=== PATIENT | female | born 1955 | race Caucasian/White ===

== ENCOUNTER 2017-08-09 09:21 | Day surgery (SDC) | payer OTHER ==
[2017-08-03 16:57] VITALS: BMI 30.7
[2017-08-09] MEDS ORDERED: PROPOFOL 20 ML ONE (09:30)
[2017-08-09 12:38] VITALS: BP 108/60; PULSE 82; TEMP 97.4
--- NOTE | 2017-08-13 19:23 | PATH ---
Surgical Pathology Report Patient Name: TRIXIE MARISCAL [facility]. Rec. #: [id number] /Age/Gender: 1955 (Age: 62) / F Account: [id number] Location: [facility]-ENDOSCOPY Taken: 08/09/2017 Received: 08/09/2017 Reported: 08/13/2017 Physicians: Keily Renee M.D. Specimen(s) Received A: SMALL BOWEL B: STOMACH C: BX GE JUNCTION Clinical History Abdominal pain Postoperative diagnosis: Status post gastric bypass surgery Final Diagnosis A. SMALL BOWEL, BIOPSY: SMALL BOWEL (DUODENAL) MUCOSA WITH NO PATHOLOGIC FINDINGS. B. STOMACH, BIOPSY: MILD CHRONIC GASTRITIS. IMMUNOSTAIN IS NEGATIVE FOR H. PYLORI ORGANISMS. C. GE JUNCTION, BIOPSY: GASTRIC CARDIA-TYPE MUCOSA SHOWING MILD CHRONIC INFLAMMATION. NO ESOPHAGEAL (SQUAMOUS) MUCOSA IS IDENTIFIED. NEGATIVE FOR INTESTINAL METAPLASIA. Electronically Signed Olivia Oviedo M.D. Gross Description A. Received in formalin, labeled "biopsy small bowel" are 2 knight, irregular portions of soft tissue measuring 0.3 and 0.4 cm. in greatest dimension. The specimens are submitted in toto in one cassette. B. Received in formalin, labeled "biopsy stomach" is a knight, irregular portion of soft tissue measuring 0.5 cm. in greatest dimension. The specimen is submitted in toto in one cassette. C. Received in formalin, labeled "biopsy GE junction" is a knight, irregular portion of soft tissue measuring 0.4 cm. in greatest dimension. The specimen is submitted in toto in one cassette. 08/10/2017 saudi08/10/2017
== END 2017-08-09 12:40 | disposition home or self-care (01) ==
LOC: FASU-ENDO 09:21
PROVIDERS: ATTEND Internal Medicine Gastroenterology
PROC: 0DB68ZX Excision of Stomach, Via Natural or Artificial Opening Endoscopic, Diagnostic (ICD-10-PCS; 2017-08-09)
PROC: 0DB98ZX Excision of Duodenum, Via Natural or Artificial Opening Endoscopic, Diagnostic (ICD-10-PCS; principal; 2017-08-09 11:54)
DX: K29.50 Unspecified chronic gastritis without bleeding (principal); K20.9 Esophagitis, unspecified; R10.9 Unspecified abdominal pain
CPT/HCPCS: 88305-TC; 88342-TC